=== PATIENT | female | born 1980 | race Caucasian/White ===

== ENCOUNTER → 2016-09-19 | Outpatient (CLI) | payer BC ==
--- NOTE | 2016-09-19 15:54 | DI ---
History: Left knee pain. Procedure: 4 view examination. Prior examination: None. Findings: No evidence of fracture or dislocation. No knee joint effusion. Patient has a flabella. No evidence of osteochondritis dissecans Impression: Unremarkable 4 view left knee study
== END ==
LOC: ORTHO 11:27
PROVIDERS: ATTEND Physician Assistant
DX: M25.562 Pain in left knee (principal)
CPT/HCPCS: 73564

== ENCOUNTER → 2016-09-25 | Outpatient (CLI) | payer BC ==
--- NOTE | 2016-09-25 16:35 | DI ---
LEFT HIP JOINT INJECTION FOR MRI SCAN, 09/25/2016 1:34 PM: Clinical History: Left groin pain. Previous Exam: None at this facility. A "time out" session was performed to verify the patient's name and date of prior to obtaining informed signed consent prior for this procedure. The patient was informed of benefits and risks, to include but not be limited to: allergies to medications (skin preparation agent, local anesthetic, an d contrast agent); joint infection; and joint pain following the procedure. The area was prepped with ChloraPrep solution. 1% lidocaine without epinephrine was used for intrader mal and subcutaneous local anesthesia. A 22 gauge spinal needle was introduced under fluoroscopy into the joint space with a single pass. No joint fluid could be aspirated. 12 mL of a mixture containing 3 mL of Omipaque 240 and 10 mL of normal saline was injected into the joint. Spot films of the area were obtained. The patient tolerated the procedure well and was transferred to the MRI scan suite for the MRI arthrogram. The patient was advised to watch for signs of an infection (including but not li mited to: redness, swelling, or fever). The patient was instructed to either contact the x-ray depart ment directly or to report to the Emergency Room immediately if problems arose. There are 2 bands of contrast on the medial and lateral aspects of what should be the tendon of the i liopsoas muscle. The contrast otherwise is distributed normally. The articular surface on these limit ed views is grossly intact. Reading: Uncomplicated joint injection as above. Contrast is seen to outline which most likely represents the iliopsoas tendon and this may represent paralabral cysts.
--- NOTE | 2016-09-26 23:01 | DI ---
MRI LEFT HIP SCAN WITH INTRA-ARTICULAR CONTRAST, 09/25/2016 1:34 PM: Clinical History: Left groin pain. Previous Exam: None at this facility. Technique: Axial fat saturated T2 weighted and oblique axial PD; coronal and sagittal PD and fat satu rated PD; anterior oblique coronal fat saturated PD. There is no soft tissue edema or abnormal bone signal pattern. The ligamentum teres tendon is intact. Fluid is present on the medial and lateral sides of the tendon of the iliopsoas muscle as well as al emily the medial margin of that muscle. This fluid is well-circumscribed and contain and these 3 fluid collections are consistent with paralabral cysts. There is chondral labral separation of the acetabul ar labrum beginning at the anterosuperior quadrant near the 12:00 position and extending posteriorly and then inferiorly to the postero-inferior quadrant near the 6:00 position. No articular surface car tilaginous abnormality is identified. No asphericity of the femoral head is present and there is no d ysplastic "bump". The alpha angle is 47 degrees. Readin. There is a large chondral labral separation of the acetabular labrum in the anterosuperior quadra nt and extending posteriorly toward the posteroinferior quadrant. Paralabral cysts are present in pro ximity to the medial margin of the iliopsoas muscle and on the medial and lateral aspects of the tend on itself. There is no evidence of femoroacetabular impingement. 2. No abnormal bone signal pattern is present. The ligamentum teres is intact.
== END ==
LOC: RAD 13:29
PROVIDERS: ATTEND Physician Assistant
DX: R10.32 Left lower quadrant pain (principal); M24.852 Other specific joint derangements of left hip, not elsewhere classified
CPT/HCPCS: 27093; 73722

== ENCOUNTER → 2016-12-25 | Outpatient (CLI) | payer BC ==
[2016-12-25 13:19] LABS: HEMOGLOBIN A1C 5.49 % (4.2-6.0)
[2016-12-25 13:21] LABS: BLOOD UREA NITROGEN 7 mg/dL (7-22); CALCIUM 9.7 mg/dL (8.7-10.7); EST GLOMERULAR FILTRATION > 60 (>60 ml/min/1.73m(2))
[2016-12-26 18:51] LABS: FERRITIN 47.3 ng/mL (12.00-336.70)
[2016-12-27 10:55] LABS: FREE T4 (FREE THYROXINE) 0.86 ng/dL (0.93-1.71)
== END ==
LOC: MOB LAB 12:08
PROVIDERS: ATTEND Student in an Organized Health Care Education/Training Program
DX: R53.83 Other fatigue (principal); E88.81 Metabolic syndrome and other insulin resistance; M25.552 Pain in left hip; M25.551 Pain in right hip; F17.200 Nicotine dependence, unspecified, uncomplicated; Z79.899 Other long term (current) drug therapy
CPT/HCPCS: 36415; 80053; 82306; 82728; 83036; 83540; 83550; 84439; 84443; 86140